=== PATIENT | male | born 1975 | race Caucasian/White ===

== ENCOUNTER 2016-11-03 23:09 | Emergency (ER) | payer SELFPAY ==
[~2016-11-03] VITALS: Ht 170.2 cm; Wt 68.0 kg
== END 2016-11-04 00:11 | disposition home or self-care (01) ==
LOC: ED 23:09
PROC: 0HQFXZZ Repair Right Hand Skin, External Approach (ICD-10-PCS; principal; 2016-11-03)
DX: S61.214A Laceration without foreign body of right ring finger without damage to nail, initial encounter (principal); W26.1XXA Contact with sword or dagger, initial encounter
CPT/HCPCS: 12001; 99282